=== PATIENT | female | born 1955 | race Caucasian/White ===

== ENCOUNTER 2019-09-30 17:21 | Emergency (ER) | payer BC ==
[~2019-09-30 17:21] MED LIST: SODIUM CHL 0.9% 1000 ML BAG ONE
[2019-09-30] MEDS ORDERED: ETOMIDATE 20 MG/10 ML VIAL IV ONE (17:22)
[2019-09-30] MEDS ORDERED: SUCCINYLCHOLINE 20 MG/ML (10 ML) IV ONE (17:22)
[2019-09-30] MEDS ORDERED: LEVALBUTEROL 1.25 MG/3 ML NEB ONE (17:57)
[2019-09-30] MEDS ORDERED: dexAMETHasone 10 MG/ML VIAL ONE (17:57)
[2019-09-30] MEDS ORDERED: IPRATROPIUM BROM 0.5MG/2.5ML ONE (17:57)
[2019-09-30] MEDS ORDERED: METHYLPREDNISOLONE 125 MG INJ ONE (17:57)
[2019-09-30] MEDS ORDERED: NA CHLORIDE 0.9% 1,000 ML ONE ×2 (17:58→19:27)
[2019-09-30] MEDS ORDERED: FAMOTIDINE 20 MG/2 ML VIAL IV ONE (17:58)
[2019-09-30] MEDS ORDERED: DIPHENHYDRAMINE 50 MG/ML VIAL ONE (17:58)
[2019-09-30] MEDS ORDERED: CEFTRIAXONE/SWI 1gm 1 GM/10 ML SYR ONE (17:58)
[2019-09-30] MEDS ORDERED: AZITHROMYCIN IV 500 MG in NA CHLORIDE 0.9% 250 ML IVPB ONE (18:00)
[2019-09-30 18:22] LABS: Absolute Lymphocytes (CBC) 0.4 K/uL (0.7-4.9); Basophils % 0.2 % (0-1.3); Hematocrit 45.2 % (36.0-45.0); Lymphocytes % 5.3 % (15.3-44.8); MPV 8.6 fL (7.6-11.3); RBC Red Blood Cell Count 4.73 M/uL (3.86-4.86)
[2019-09-30 18:29] LABS: Protime INR 1.04
[2019-09-30 18:54] LABS: ALT/SGPT 36 U/L (12-78); AST/SGOT 36 U/L (15-37); Albumin 3.5 g/dL (3.4-5.0); Alkaline Phosphatase 138 U/L (45-117); BUN Blood Urea Nitrogen 13 mg/dL (7-18); Bicarbonate 19 mmol/L (21-32); Bilirubin Direct 0.5 mg/dL (0-0.2); Glucose Level 193 mg/dL (74-106); NT PRO-BNP 212 pg/mL (<125); Potassium 3.1 mmol/L (3.5-5.1); Protein, Total 7.3 g/dL (6.4-8.2); Sodium Level 141 mmol/L (136-145); Troponin (Emerg Dept Use Only) < 0.02 ng/mL (0.0-0.045)
[2019-09-30 18:59] LABS: Magnesium 1.1 mg/dL (1.8-2.4)
[2019-09-30] MEDS ORDERED: MAGNESIUM SULFATE 1 gm IVPB 1 GM/100 ML BAG IV ONE (19:05)
[2019-09-30] MEDS ORDERED: Magnesium Sulfate 2gm IVPB 0 G/0 ML BAG IV ONE (19:15)
[2019-09-30] MEDS ORDERED: KCL 20 MEQ/100 mL IVPB 0 MEQ/0 ML BAG IV ONE (19:15)
[2019-09-30] MEDS ORDERED: RSI MEDICATION KIT IV ONE (19:28)
[2019-09-30] MEDS ORDERED: LIDOCAINE 1% W/EPI 1:100,000 MDV 50 ML VIAL ONE (20:06)
--- NOTE | 2019-09-30 20:09 | ER ---
Nurse's Notes [facility] Name: Sonal Mendoza Age: 64 yrs Sex: Female : 1955 Arrival Date: 09/30/2019 Time: 17:25 Bed External Waiting [facility] MD: Diagnosis: Stridor;Angioneurotic edema-submental;Respiratory failure, unspecified;Tracheostomy status-cricothyroidotomy;Type 2 diabetes mellitus;Obesity, unspecified;Hypokalemia;Hypomagnesemia Presentation: 09/30 17:27 Transition of care: patient was not received from another setting of care. Onset of tw2 symptoms was September 30, 2019. Risk Assessment: Do you want to hurt yourself or someone else? Patient reports no desire to harm self or others. Initial Sepsis Screen: Does the patient meet any 2 criteria? HR > 90 bpm. No. Patient's initial sepsis screen is negative. Does the patient have a suspected source of infection? Yes: Productive cough/pneumonia. 17:27 Method Of Arrival: EMS: [facility] tw2 17:27 Presenting complaint: EMS states: started at 0400am today. Pt went to urgent care ca1 at noon with Dx of Pharyngitis and was sent home with Augmentin prescription. Took Augmentin med [employer]. Pt c/o increase , wheezing upon auscultation. SBP at 110. Sinus tach. Transition of care: patient was not received from another setting of care. Onset of symptoms was September 30, 2019. Risk Assessment: Do you want to hurt yourself or someone else? Patient reports no desire to harm self or others. 17:27 Acuity: JENNA 3 ca1 17:28 Care prior to arrival: Medication(s) given: Albuterol Neb x 1, Atrovent Neb x 1, ca1 Solu-Medrol 125mg IV initiated. 20 GA, in the left antecubital area. 18:50 Acuity: JENNA 2 ss Historical: - Allergies: 17:40 Sulfa (Sulfonamide Antibiotics); ca1 - Home Meds: 17:40 amlodipine 5 mg tab 1 tab once daily [Active]; diazepam 5 mg Oral tab 1 tab 2 times per ca1 day [Active]; enalapril maleate 10 mg Oral tab 1 tab 2 times per day [Active]; ibuprofen 800 mg Oral tab as needed [Active]; Tresiba 1.8 mg daily [Active]; Trulisity 28 mg daily [Active]; atorvastatin 40 mg oral tab 1 tab once daily [Active]; Invokana 300 mg oral tab 1 tab once daily [Active]; furosemide 20 mg Oral tab 1 tab once daily [Active]; oxbytynin 10mg daily [Active]; pantoprazole oral oral [Active]; - PMHx: 17:40 Hyperlipidemia; Hypertension; Diabetes - NIDDM; ca1 - PSHx: 17:40 ; ca1 - Immunization history:: Adult Immunizations. - Social history:: Smoking status: . - Ebola Screening: : Patient denies travel to an Ebola-affected area in the 21 days before illness onset. Screenin:26 Abuse screen: Denies threats or abuse. Nutritional screening: No deficits noted. tw2 Tuberculosis screening: No symptoms or risk factors identified. Fall Risk None identified. Assessment: 17:35 General: Appears in no apparent distress. comfortable, Behavior is calm, cooperative, ca1 appropriate for age. Pain: Complains of pain in neck Pain currently is 6 out of 10 on a pain scale. Neuro: Level of Consciousness is awake, alert, obeys commands, Oriented to person, place, time, situation, Appropriate for age. Cardiovascular: Heart tones S1 S2 present Capillary refill < 3 seconds Patient's skin is warm and dry. Rhythm is sinus tachycardia. Respiratory: Reports shortness of breath cough that is Airway is patent Respiratory effort is even, unlabored, Respiratory pattern is regular, symmetrical, Breath sounds with wheezes bilaterally. GI: Abdomen is round non-distended, Bowel sounds present X 4 quads. Abd is soft and non tender X 4 quads. : No deficits noted. No signs and/or symptoms were reported regarding the genitourinary system. EENT: Reports nasal congestion. Derm: Skin is intact, is healthy with good turgor, Skin is pink, warm \T\ dry. Musculoskeletal: Circulation, motion, and sensation intact. Capillary refill < 3 seconds, Range of motion: intact in all extremities. 18:26 Reassessment: Patient appears in no apparent distress at this time. Patient and/or ca1 family updated on plan of care and expected duration. Pain level reassessed. Patient is alert, oriented x 3, equal unlabored respirations, skin warm/dry/pink. 18:38 Reassessment: Pt exerted herself to situate self on bed. Had severe . Placed on NRB, ca1 instructed to breathe slower. Notified provider. Pt now breathing better, severe resolved. Equal and unlabored respirations at this time.. Skin pink, warm and dry. Provider at bedside. 19:10 Reassessment: Patient appears in no apparent distress at this time. Patient and/or wh family updated on plan of care and expected duration. Pain level reassessed. Patient is alert, oriented x 3, equal unlabored respirations, skin warm/dry/pink. Lung sound with wheezes, MD Mendoza at bedside plan for CT scan of neck. 19:20 Reassessment: Pt was taken to CT with nurse, Pt started to become anxious and had wh respiratory distress. Pt was taken back to bedside still with O2 mask. MD notified. 19:22 Reassessment: MD at bedside PT in respiratory distress, RT paged plan for intubation. wh 19:29 Reassessment: Pt was prepped for intubation MD Epperson and MD Mendoza at bedside. wh 19:45 Reassessment: Emergency Cricothyrotomy performed by MD Mendoza. wh 20:00 Reassessment: Pt attempting to pull out ET tube, meds given. wh 20:42 Reassessment: Central Line started by MD Epperson, Pt moving extremity, House [facility]ers wh held Pt extremity. 21:10 Reassessment: Report given to Alexandra Martins RN [facility]. wh 21:15 Reassessment: [facility] arrived with report given by MD Mendoza, Pt VSS, Pupils wh reactive to light, with movement of extremity noted. Vital Signs: 17:25 BP 162 / 83; Pulse 110; Resp 20; Pulse Ox 98% on R/A; tw2 17:40 Temp 98.2(O); Weight 98.43 kg (R); Height 5 ft. 3 in. (160.02 cm) (R); ca1 18:26 BP 108 / 77; Pulse 116; Resp 21; Pulse Ox 100% on R/A; ca1 19:30 Pulse 112; Resp 26; Pulse Ox 94% ; wh 20:00 BP 85 / 54; Pulse 104; Resp 22; Pulse Ox 94% ; wh 20:30 BP 85 / 74; Pulse 96; Resp 24; Pulse Ox 98% ; wh 21:00 BP 108 / 65; Pulse 87; Resp 20; Pulse Ox 94% ; 17:40 Body Mass Index 38.44 (98.43 kg, 160.02 cm) ca1 ED Course: 17:25 Patient arrived in ED. tw2 17:25 Bed in low position. Call light in reach. laborer golf course on. Pulse ox on. NIBP on. tw2 17:27 Fang Reyes, RN is Primary Nurse. ca1 17:27 Arm band placed on. tw2 17:32 Owen Epperson MD is Attending Physician. [facility] 17:32 Triage completed. ca1 17:35 Warm blanket given. Head of bed elevated. ca1 17:35 No provider procedures requiring assistance completed. Maintain EMS IV. Dressing ca1 intact. Good blood return noted. Site clean \T\ dry. Gauge \T\ site: G20 LAC. 17:55 Initial lab(s) drawn, by fl, sent to lab. First set of blood cultures drawn by me. lt1 18:03 Inserted saline lock: 22 gauge in right hand, using aseptic technique. lt1 18:18 Second set of blood cultures drawn by me. ca1 18:30 XRAY Chest (1 view) In Process Unspecified. EDMS 19:01 Fuentes Zhang is Primary Nurse. 20:10 One-on-one care X 60 minutes. aa1 20:21 XRAY Chest (1 view) In Process Unspecified. EDMS 20:33 Inserted saline lock: 18 gauge in right antecubital area, using aseptic technique. By [facility] Tech. 21:10 One-on-one care X 60 minutes. aa1 21:23 Patient transferred, IV remains in place. 10/01 05:48 Primary Nurse role handed off by Fuentes Zhang aa1 Administered Medications: 09/30 18:00 Drug: NS 0.9% 1000 ml Route: IV; Rate: 1 bolus; Site: right hand; ca1 21:18 Follow up: Response: No adverse reaction; IV Status: Completed infusion 18:01 Drug: Decadron - Dexamethasone 10 mg Route: IVP; Site: right hand; ca1 21:20 Follow up: Response: No adverse reaction 18:04 Not Given (previously given by EMS): SOLU-Medrol 125 mg IVP once tw2 18:04 Drug: Pepcid 40 mg Route: IVP; Site: right hand; ca1 21:19 Follow up: Response: No adverse reaction wh 18:04 Drug: Xopenex 3.75 mg Route: Inhalation; tw2 18:04 Drug: AtroVENT Aerosol 0.5 mg Route: Inhalation; tw2 18:08 Drug: Benadryl 25 mg Route: IVP; Site: left hand; ca1 21:19 Follow up: Response: No adverse reaction 18:19 Drug: Rocephin 1 grams Route: IV; Rate: per protocol; Site: right hand; ca1 21:19 Follow up: Response: No adverse reaction; IV Status: Completed infusion 18:20 Drug: Zithromax 500 mg Route: IVPB; Infused Over: 1 hrs; Site: right hand; ca1 21:18 Follow up: Response: No adverse reaction; IV Status: Completed infusion 18:25 Drug: Benadryl 25 mg Route: IVP; Site: right hand; ca1 21:19 Follow up: Response: No adverse reaction 19:06 Drug: Magnesium Sulfate 1 grams Route: IVPB; Infused Over: 1 hrs; Site: left wh antecubital; 21:19 Follow up: Response: No adverse reaction; IV Status: Completed infusion 19:28 Drug: Etomidate 20 mg Route: IVP; Site: left antecubital; aa1 19:28 Drug: NS 0.9% 1000 ml Route: IV; Rate: 1000 ml; Site: left antecubital; aa1 20:00 Follow up: IV Status: Completed infusion; IV Intake: 1000ml aa1 19:29 Drug: Ketamine 200 mg Route: IVP; Site: left antecubital; aa1 19:39 Drug: Succinylcholine 50 mg Route: IVP; Site: left antecubital; aa1 20:01 Drug: Ketamine 200 mg Route: IVP; Site: left antecubital; aa1 20:01 Drug: fentaNYL (PF) 100 mcg Route: IVP; Site: left antecubital; aa1 20:05 Drug: Ketamine 100 mg Route: IVP; Site: left antecubital; aa1 20:07 Drug: Succinylcholine 50 mg Route: IVP; Site: left antecubital; aa1 20:10 Drug: NS 0.9% 1000 ml Route: IV; Rate: 1000 ml; Site: left antecubital; aa1 21:00 Follow up: IV Status: Completed infusion; IV Intake: 1000ml aa1 20:27 Drug: Lidocaine-Epinephrine -1%: (1:100,000) 1 application Volume: 20 ml; Route: aa1 Infiltration; 20:30 Drug: Ketamine 200 mg Route: IVP; Site: left antecubital; aa1 20:35 Drug: Ketamine 200 mg Route: IVP; Site: left antecubital; aa1 20:38 Drug: Succinylcholine 100 mg Route: IVP; Site: left antecubital; aa1 20:40 Drug: fentaNYL (PF) 50 mcg/h Route: IV; Rate: calculated rate; Site: left antecubital; aa1 10/01 06:14 Follow up: IV Status: Infusion continued upon transfer aa1 09/30 20:50 Drug: Zosyn 3.375 grams Route: IVPB; Infused Over: 60 mins; Site: right femoral; 21:20 Follow up: Response: No adverse reaction; IV Status: Infusion continued upon transfer 22:23 Drug: fentaNYL (PF) 100 mcg Route: IVP; Site: left antecubital; aa1 Intake: 20:00 IV: 1000ml; Total: 1000ml. aa1 21:00 IV: 1000ml; Total: 2000ml. aa1 Outcome: 20:07 ER care complete, transfer ordered by MD. edge 21:[address] [facility], Transfer form completed. X-rays sent w/ patient. 21:22 Transferred Note: Report given to Alexandra Martins RN and Dr Mendoza gave report to [facility] 21:22 Condition: stable 21:22 Instructed on the need for transfer. 21:23 Patient left the ED. 21:23 Patient left the ED. aa1 Signatures: Dispatcher [employer] EDMS Saba Rod RN RN aa1 Owen Epperson MD MD cha Smirch, Shelby, RN RN ss Wise, Tara, RN RN 2 Fuentes Zhang Fang Reyes RN RN ca1 Tran, Leah [facility] Corrections: (The following items were deleted from the chart) 17:33 17:27 Method Of Arrival: EMS: [facility] ca1 ca1 18:00 17:27 Care prior to arrival: None. tw2 ca1 18:00 17:27 Risk Assessment: Do you want to hurt yourself or someone else? Patient reports no ca1 desire to harm self or others. ca1 18:26 17:35 Cardiovascular: Heart tones S1 S2 present Capillary refill < 3 seconds Patient's ca1 skin is warm and dry. ca1 10/01 06:09 06:07 Succinylcholine 100 mg IVP in left antecubital aa1 aa1 06:18 06:16 Patient left the ED. aa1 aa1
--- NOTE | 2019-09-30 20:10 | EDPHYS ---
Physician Documentation [facility] Name: Sonal Mendoza Age: 64 yrs Sex: Female : 1955 Arrival Date: 09/30/2019 Time: 17:25 Bed External Waiting Private MD: ED Physician Owen Epperson HPI: 09/30 17:45 This 64 yrs old Female presents to ER via EMS with complaints of difficulty minesh swallowing, choking. Historical: - Allergies: 17:40 Sulfa (Sulfonamide Antibiotics); ca1 - Home Meds: 17:40 amlodipine 5 mg tab 1 tab once daily [Active]; diazepam 5 mg Oral tab 1 tab 2 times per ca1 day [Active]; enalapril maleate 10 mg Oral tab 1 tab 2 times per day [Active]; ibuprofen 800 mg Oral tab as needed [Active]; Tresiba 1.8 mg daily [Active]; Trulisity 28 mg daily [Active]; atorvastatin 40 mg oral tab 1 tab once daily [Active]; Invokana 300 mg oral tab 1 tab once daily [Active]; furosemide 20 mg Oral tab 1 tab once daily [Active]; oxbytynin 10mg daily [Active]; pantoprazole oral oral [Active]; - PMHx: 17:40 Hyperlipidemia; Hypertension; Diabetes - NIDDM; ca1 - PSHx: 17:40 ; ca1 - Immunization history:: Adult Immunizations. - Social history:: Smoking status: . - Ebola Screening: : Patient denies travel to an Ebola-affected area in the 21 days before illness onset. ROS: 17:47 Constitutional: Negative for fever, chills, and weight loss, Eyes: Negative for injury, minesh pain, redness, and discharge, Neck: Negative for injury, pain, and swelling, Cardiovascular: Negative for chest pain, palpitations, and edema, Abdomen/GI: Negative for abdominal pain, nausea, vomiting, diarrhea, and constipation, Back: Negative for injury and pain, : Negative for injury, bleeding, discharge, and swelling, MS/Extremity: Negative for injury and deformity, Skin: Negative for injury, rash, and discoloration, Neuro: Negative for headache, weakness, numbness, tingling, and seizure, Psych: Negative for depression, anxiety, suicide ideation, homicidal ideation, and hallucinations, Allergy/Immunology: Negative for hives, rash, and allergies, Endocrine: Negative for neck swelling, polydipsia, polyuria, polyphagia, and marked weight changes, Hematologic/Lymphatic: Negative for swollen nodes, abnormal bleeding, and unusual bruising. 17:47 Respiratory: Positive for cough, shortness of breath, on exertion. Exam: 17:47 Constitutional: This is a well developed, well nourished patient who is awake, alert, minesh and in no acute distress. Head/Face: Normocephalic, atraumatic. Eyes: Pupils equal round and reactive to light, extra-ocular motions intact. Lids and lashes normal. Conjunctiva and sclera are non-icteric and not injected. Cornea within normal limits. Periorbital areas with no swelling, redness, or edema. Neck: Trachea midline, no thyromegaly or masses palpated, and no cervical lymphadenopathy. Supple, full range of motion without nuchal rigidity, or vertebral point tenderness. No Meningismus. Chest/axilla: Normal chest wall appearance and motion. Nontender with no deformity. No lesions are appreciated. Abdomen/GI: Soft, non-tender, with normal bowel sounds. No distension or tympany. No guarding or rebound. No evidence of tenderness throughout. Back: No spinal tenderness. No costovertebral tenderness. Full range of motion. Skin: Warm, dry with normal turgor. Normal color with no rashes, no lesions, and no evidence of cellulitis. MS/ Extremity: Pulses equal, no cyanosis. Neurovascular intact. Full, normal range of motion. Neuro: Awake and alert, GCS 15, oriented to person, place, time, and situation. Cranial nerves II-XII grossly intact. Motor strength 5/5 in all extremities. Sensory grossly intact. Cerebellar exam normal. Normal gait. Psych: Awake, alert, with orientation to person, place and time. Behavior, mood, and affect are within normal limits. 17:47 ENT: Posterior pharynx: no acute changes, Airway: normal, no evidence of obstruction, Tonsils: with erythema, Uvula: normal, midline, non-edematous, no erythema, swelling, is not appreciated, erythema, is not appreciated. 17:47 ENT: Posterior pharynx: exudate, is not appreciated, peritonsillar mass, is not minesh appreciated, pooling of secretions, is not appreciated. Vital Signs: 17:25 BP 162 / 83; Pulse 110; Resp 20; Pulse Ox 98% on R/A; tw2 17:40 Temp 98.2(O); Weight 98.43 kg (R); Height 5 ft. 3 in. (160.02 cm) (R); ca1 18:26 BP 108 / 77; Pulse 116; Resp 21; Pulse Ox 100% on R/A; ca1 19:30 Pulse 112; Resp 26; Pulse Ox 94% ; wh 20:00 BP 85 / 54; Pulse 104; Resp 22; Pulse Ox 94% ; wh 20:30 BP 85 / 74; Pulse 96; Resp 24; Pulse Ox 98% ; wh 21:00 BP 108 / 65; Pulse 87; Resp 20; Pulse Ox 94% ; wh 17:40 Body Mass Index 38.44 (98.43 kg, 160.02 cm) ca1 Procedures: 21:08 Central Line: the site was prepped with Betadine, in sterile fashion, a triple lumen minesh catheter was inserted, in the right in 2 attempts. placement was verified, by blood return, the site was dressed with using sterile technique, the patient tolerated the procedure, well. 22:18 Intubation: Ventilated with 100% NRB prior to procedure. Intubated via cricothyrotomy ps1 was successful on first attempt. Tube secured Placement verified by CXR, CO2 detector with (+) color change, Patient was attempted to be intubated prior via GlideScope. Multiple failed intubations by myself and anesthesia using all methods and contingencies to secure airway. Procedure was performed by prepping neck with Betadine. 15 blade used in vertical fashion and extended to cricoid cartilage. Spreaders used to visualized surgical area. Longitudinal incision made and jacobs of air confirmed placement into trachea. Bleeding controlled with pressure. 6-0 ETT placed cuff inflated and patient was able to be ventilated, confirmed with bedside quantitative capnography \T\ \R\45. . MDM: 17:32 Patient medically screened. [facility] 17:50 Data reviewed: vital signs, nurses notes, lab test result(s), EKG, radiologic studies, [facility] CT scan, plain films. 22:18 ED course: Assumed care from Dr. Epperson at shift change. Evaluated patient and had ps1 significant swelling in submandibular area. No trismus or difficulty in phonation. Family at bedside. Was given 125mg solumedrol and 10mg decadron IV. Plan for CT soft tissue neck for further evaluation. Patient upon going to CT became anxious and then could not breathe. She went full respiratory distress and called back to room. Myself and Dr. Epperson emergently treating patients condition. Able to bag. Ketamine was given to protect airway given likelihood of anatomical difficulty. Glidescope used and cords could not be passed with ET tube. Marked swelling of area and pooling of secretions. Attempts to suction and intubate failed secondary to swelling including bougie. Anesthesia paged and performed failed intubation. scallop binder surgery paged. Emergent cricothyrotomy was performed by myself given poor visualization attempts and coordination with other ED physician Dr. Epperson and Anesthesia Dr. Lee as we did not want to compromise the airway and ability to bag. Successful placement of 6-0 ETT in trachea. Patient moving all extremities and no FND noted. Bleeding was minimal and controlled with pressure. Dr. Vanessa presented to ED and confirmed placement with emergent bronchoscopy and placed 4-0 uncuffed Shiley over bougie via ETT. Patient was sedated with ketamine and fentanyl as patient was moving during procedure. Dr. Epperson placed right femoral CVC. Transferred critically stable on trach via helicopter to [facility]. Patient was moving all extremities and had normal sized pupils. No FND appreciated from event. . 09/30 17:44 Order name: Basic Metabolic Panel; Complete Time: 19: minesh 09/30 17:44 Order name: CBC with Diff; Complete Time: 21:09 minesh 09/30 17:44 Order name: LFT's; Complete Time: 19: minesh 09/30 17:44 Order name: Magnesium; Complete Time: 19: minesh 09/30 17:44 Order name: NT PRO-BNP; Complete Time: 19: minesh 09/30 17:44 Order name: PT-INR; Complete Time: 18:52 minesh 09/30 17:44 Order name: Troponin (emerg Dept Use Only); Complete Time: 19: minesh 09/30 17:44 Order name: XRAY Chest (1 view); Complete Time: 21:09 minesh 09/30 17:47 Order name: Blood Culture Adult (2) minesh 09/30 18:36 Order name: CBC Smear Scan; Complete Time: 21:09 EDWA 09/30 19:58 Order name: XRAY Chest (1 view); Complete Time: 21:09 dm5 09/30 20:26 Order name: Glucose, Ancillary Testing; Complete Time: 21:09 EDMS 09/30 20:26 Order name: Glucose, Ancillary Testing EDWA 09/30 17:44 Order name: EKG; Complete Time: 17:47 minesh 09/30 17:44 Order name: Cardiac monitoring; Complete Time: 17:48 [facility] 09/30 17:44 Order name: EKG - Nurse/Tech; Complete Time: 17:48 [facility] 09/30 17:44 Order name: IV Saline Lock; Complete Time: 18:25 minesh 09/30 17:44 Order name: Labs collected and sent; Complete Time: 18:25 [facility] 09/30 17:44 Order name: O2 Per Protocol; Complete Time: 17:48 [facility] 09/30 17:44 Order name: O2 Sat Monitoring; Complete Time: 17:48 [facility] 09/30 19:10 Order name: IV Saline Lock - Large Bore; Complete Time: 20:52 [facility] 09/30 19:11 Order name: NPO; Complete Time: 21:18 [facility] 09/30 20:11 Order name: Blood Glucose Level; Complete Time: 20:52 minesh Administered Medications: 18:00 Drug: NS 0.9% 1000 ml Route: IV; Rate: 1 bolus; Site: right hand; ca1 21:18 Follow up: Response: No adverse reaction; IV Status: Completed infusion wh 18:01 Drug: Decadron - Dexamethasone 10 mg Route: IVP; Site: right hand; ca1 21:20 Follow up: Response: No adverse reaction wh 18:04 Not Given (previously given by EMS): SOLU-Medrol 125 mg IVP once tw2 18:04 Drug: Pepcid 40 mg Route: IVP; Site: right hand; ca1 21:19 Follow up: Response: No adverse reaction wh 18:04 Drug: Xopenex 3.75 mg Route: Inhalation; tw2 18:04 Drug: AtroVENT Aerosol 0.5 mg Route: Inhalation; tw2 18:08 Drug: Benadryl 25 mg Route: IVP; Site: left hand; ca1 21:19 Follow up: Response: No adverse reaction 18:19 Drug: Rocephin 1 grams Route: IV; Rate: per protocol; Site: right hand; ca1 21:19 Follow up: Response: No adverse reaction; IV Status: Completed infusion 18:20 Drug: Zithromax 500 mg Route: IVPB; Infused Over: 1 hrs; Site: right hand; ca1 21:18 Follow up: Response: No adverse reaction; IV Status: Completed infusion 18:25 Drug: Benadryl 25 mg Route: IVP; Site: right hand; ca1 21:19 Follow up: Response: No adverse reaction 19:06 Drug: Magnesium Sulfate 1 grams Route: IVPB; Infused Over: 1 hrs; Site: left wh antecubital; 21:19 Follow up: Response: No adverse reaction; IV Status: Completed infusion 19:28 Drug: Etomidate 20 mg Route: IVP; Site: left antecubital; aa1 19:28 Drug: NS 0.9% 1000 ml Route: IV; Rate: 1000 ml; Site: left antecubital; aa1 20:00 Follow up: IV Status: Completed infusion; IV Intake: 1000ml aa1 19:29 Drug: Ketamine 200 mg Route: IVP; Site: left antecubital; aa1 19:39 Drug: Succinylcholine 50 mg Route: IVP; Site: left antecubital; aa1 20:01 Drug: Ketamine 200 mg Route: IVP; Site: left antecubital; aa1 20:01 Drug: fentaNYL (PF) 100 mcg Route: IVP; Site: left antecubital; aa1 20:05 Drug: Ketamine 100 mg Route: IVP; Site: left antecubital; aa1 20:07 Drug: Succinylcholine 50 mg Route: IVP; Site: left antecubital; aa1 20:10 Drug: NS 0.9% 1000 ml Route: IV; Rate: 1000 ml; Site: left antecubital; aa1 21:00 Follow up: IV Status: Completed infusion; IV Intake: 1000ml aa1 20:27 Drug: Lidocaine-Epinephrine -1%: (1:100,000) 1 application Volume: 20 ml; Route: aa1 Infiltration; 20:30 Drug: Ketamine 200 mg Route: IVP; Site: left antecubital; aa1 20:35 Drug: Ketamine 200 mg Route: IVP; Site: left antecubital; aa1 20:38 Drug: Succinylcholine 100 mg Route: IVP; Site: left antecubital; aa1 20:40 Drug: fentaNYL (PF) 50 mcg/h Route: IV; Rate: calculated rate; Site: left antecubital; [facility] 10/01 06:14 Follow up: IV Status: Infusion continued upon transfer [facility] 09/30 20:50 Drug: Zosyn 3.375 grams Route: IVPB; Infused Over: 60 mins; Site: right femoral; 21:20 Follow up: Response: No adverse reaction; IV Status: Infusion continued upon transfer 22:23 Drug: fentaNYL (PF) 100 mcg Route: IVP; Site: left antecubital; [facility] Disposition: 22:18 Critical Care:. ps1 Disposition: 09/30/19 20:07 Transfer ordered to [facility]. Diagnosis are Stridor, Angioneurotic edema - submental, Respiratory failure, unspecified, Tracheostomy status - cricothyroidotomy, Type 2 diabetes mellitus, Obesity, unspecified, Hypokalemia, Hypomagnesemia. - Reason for transfer: Higher level of care. - Accepting physician is [place] [facility], life flight. - Condition is Critical. - Problem is new. - Symptoms have improved. Critical care time excluding procedures: 22:18 Critical care time: Bedside Care: 45 minutes, Consultation: 10 minutes, Family ps1 Intervention: 15 minutes. Total time: 70 minutes Signatures: Dispatcher [employer] EDSaba Cole RN RN aa1 Owen Epperson MD MD cha Smirch, Shelby, RN RN ss Jeannie Marcum RN RN tw2 Fuentes Zhang Phillip, MD MD ps1 Fang Reyes RN RN ca1 Corrections: (The following items were deleted from the chart) 20:25 20:07 09/30/2019 20:07 Transfer ordered to [facility]. minesh Diagnosis is Stridor; Angioneurotic edema - submental; Respiratory failure, unspecified; Tracheostomy status; Type 2 diabetes mellitus; Obesity, unspecified. Reason for transfer: Higher level of care. Accepting physician is [place] [facility], life flight. Condition is Critical. Problem is new. Symptoms have improved. minesh 21:11 20:25 09/30/2019 20:07 Transfer ordered to [facility]. minesh Diagnosis is Stridor; Angioneurotic edema - submental; Respiratory failure, unspecified; Tracheostomy status; Type 2 diabetes mellitus; Obesity, unspecified; Hypokalemia; Hypomagnesemia. Reason for transfer: Higher level of care. Accepting physician is [place] er, life flight. Condition is Critical. Problem is new. Symptoms have improved. minesh 21:23 21:11 09/30/2019 20:07 Transfer ordered to [facility]. Diagnosis is Stridor; Angioneurotic edema - submental; Respiratory failure, unspecified; Tracheostomy status - cricothyroidotomy; Type 2 diabetes mellitus; Obesity, unspecified; Hypokalemia; Hypomagnesemia. Reason for transfer: Higher level of care. Accepting physician is [place] [facility], life flight. Condition is Critical. Problem is new. Symptoms have improved. minesh 10/01 04:07 09/30 22:18 ED course: Assumed care from Dr. Epperson at shift change. Evaluated ps1 patient and had significant swelling in submandibular area. No trismus or difficulty in phonation. Family at bedside. Was given 125mg solumedrol and 10mg decadron IV. Plan for CT soft tissue neck for further evaluation. Patient upon going to CT became anxious and then could not breathe. She went full respiratory distress and called back to room. Myself and Dr. Epperson emergently treating patients condition. Able to bag. Ketamine was given to protect airway given likelihood of anatomical difficulty. Glidescope used and cords could not be passed with ET tube. Marked swelling of area and pooling of secretions. Attempts to suction and intubate failed secondary to swelling including bougie. Anesthesia paged and performed failed intubation. scallop binder surgery paged. Emergent cricothyrotomy was performed by myself given poor O2 sats and difficulty bagging after multiple attempts and coordination with other ED physician Dr. Epperson and Anesthesia Dr. Lee. Successful placement of 6-0 ETT in trachea. Patient moving all extremities and no FND noted. Bleeding was minimal and controlled with pressure. Dr. Vanessa presented to ED and confirmed placement with emergent bronchoscopy and placed 4-0 uncuffed Shiley over bougie via ETT. Patient was sedated with ketamine and fentanyl. Dr. Epperson placed right femoral CVC. Transferred critically stable on trach via helicopter to [facility]. . ps1 10/01 06:16 09/30 21:23 09/30/2019 20:07 Transfer ordered to [facility]. aa1 Diagnosis is Stridor; Angioneurotic edema - submental; Respiratory failure, unspecified; Tracheostomy status - cricothyroidotomy; Type 2 diabetes mellitus; Obesity, unspecified; Hypokalemia; Hypomagnesemia. Reason for transfer: Higher level of care. Accepting physician is [place] jamal, life flight. Condition is Critical. Problem is new. Symptoms have improved. wh
[2019-09-30] MEDS ORDERED: FENTANYL CITR 100 MCG/2 ML ONE ×3 (20:24→20:35)
[2019-09-30] MEDS ORDERED: NOREPINEPHRINE 4mg/D5W 250mL 0 MG/0 ML BAG IV ONE (20:27)
[2019-09-30 20:31] LABS: Anisocytosis 1+; Blood Morphology Comment NOTED (NOT SEEN); Platelet Estimate ADEQ; Urine White Blood Cell Casts OK
[2019-09-30] MEDS ORDERED: KETAMINE HCL 500 MG/5 ML VIAL ONE (20:31)
[2019-09-30] MEDS ORDERED: NA CHLORIDE 0.9% 50 ML IV ONE (20:35)
--- NOTE | 2019-09-30 20:35 | RAD REPORT ---
EXAM DESCRIPTION: RAD - Chest Single View - 09/30/2019 6:25 pm CLINICAL HISTORY: Cough COMPARISON: April 2019 TECHNIQUE: AP portable chest image was obtained 1820 hours . FINDINGS: Lungs are clear. Heart and vasculature are normal. No measurable pleural effusion and no p neumothorax. No acute bony abnormality seen. No acute aortic findings suspected. No significant inter pascale change. IMPRESSION: No acute cardiopulmonary process.
--- NOTE | 2019-09-30 20:41 | RAD REPORT ---
EXAM DESCRIPTION: RAD - Chest Single View - 09/30/2019 8:21 pm CLINICAL HISTORY: Intubation COMPARISON: September 30 TECHNIQUE: AP portable chest image was obtained 2018 hours . FINDINGS: Lung volumes are low. Endotracheal tube is in place T4 level just superior to the aortic a rch. Patient is rotated which distorts mediastinum. Surgical instruments overlie the neck and upper c hest Dense airspace opacification has developed in the mid and lower left lung field. There is airspace op acification in the right upper lobe. Heart size is accentuated by shallow inspiration and portable te chnique. No measurable pleural effusion and no pneumothorax. No acute bony abnormality seen. No acute aortic findings suspected. IMPRESSION: Endotracheal tube in good position T4 level just above the aortic arch. New dense airspace opacification in the lower left lung field and upper right lung field. This could be edema, infiltrate or aspiration.
[2019-09-30] MEDS ORDERED: PIPER/TAZO/NS 3.375gm 3.375 GM/100 ML BAG ONE (20:56)
--- NOTE | 2019-09-30 21:26 | ENDO RPT ---
[address], [address] BRONCHOSCOPY PROCEDURE REPORT EXAM DATE: 09/30/2019 PATIENT NAME: Sonal Mendoza MR #: [id number] BIRTHDATE: 1955 ATTENDING: Anuel Vanessa DR STATUS: inpatient - 7 MANAGER TALENT: Colton [employer] INDICATIONS: The patient is a 64 yr old Female here for a bronchoscopy due to upper airway obstruction, hemoptysis, and Angioedema with airway obstruction PROCEDURE PERFORMED: Bronchoscopy MEDICATIONS: Per Anesthesia. TOPICAL ANESTHETIC: none CONSENT: The patient understands the risks and benefits of the procedure and understands that these risks include, but are not limited to: sedation, allergic reaction, infection, perforation and/or bleeding. Alternative means of evaluation and treatment include, among others: physical exam, x-rays, and/or surgical intervention. The patient elects to proceed with this endoscopic procedure. DESCRIPTION OF PROCEDURE: During intra-op preparation period all mechanical medical equipment was checked for proper function. Hand hygiene and appropriate measures for infection prevention was taken. After the risks, benefits and alternatives of the procedure were thoroughly explained, Informed consent not obtained due to emergency proceudre, The patient was anesthetized with topical anesthesia and the Pentax EB-[id number] ([id number]) bronchoscope was introduced through the mouth, and later through the tracheostomy. When adequate anesthesia was achieved, the bronchoscope was passed through the larynx, into the trachea. The tracheo-bronchial tree was only examined to the libertad. FINDINGS: An airway deviation was found in the trachea. anteriorly located edematous erythematous with fresh clot Verified Position of Tracheostomy The instrument was then slowly withdrawn and removed. --> Patient was brought in with airway obstruction, significant angioedema, attempts to intubate by ER staff and anesthesiologist were unsuccessful. ER physician performed cricoid / tracheal incision and placed #6 ET tube in trachea. ET tube was replaced with 4 uncuffed shiley tracheostomy tube using seldinger technique and gum elastic bougie by myself. Bronchoscope was used to verify position of the tracheostomy from mouth. ADVERSE EVENTS: There were no complications. IMPRESSIONS: An airway deviation was found in the trachea RECOMMENDATIONS: 1. repeat x-ray 2. respiratory therapy 3. Transferred to tertiary referral center with ENT specialty for further management. Anuel Vanessa DR eSigned: Anuel Vanessa DR 09/30/2019 9:26 PM CC: CPT CODES: ICD9 CODES: PATIENT NAME: Sonal Mendoza MR#: [id number]
[2019-09-30 21:33] VITALS: TEMP 98.2
[2019-09-30 21:35] VITALS: BP 108/77
--- NOTE | 2019-10-01 02:04 | CON ---
Date of Consultation: 09/30/2019 Reason For Consultation: Airway compromise, in need for surgical airway. History Of Present Illness: The patient is a 64-year-old female who came to the hospital with airway angioedema and choking and difficulty breathing. She had a significant anxiety and ultimately had r espiratory decompensation. It was decided the patient would require emergent intubation and intubati on was attempted by the ER staff unsuccessfully. They called Dr. Lee, anesthesiologist who ultim ately tried to intubate the patient and ultimately unsuccessful. Dr. Tucker Mendoza then opted to place a tracheostomy surgical airway at that same time. Please see Dr. Mendoza's note for full details reg arding this. At this point while Dr. Mendoza was attempting to make the incision, I was notified to [facility] and see the patient as such came emergently. I arrived at the bedside and noted that the tracheo stomy had been performed prior to my arrival with a 6 ET tube in the trachea. The patient had a satu ration sitting in the 80s. I examined the tube and the airway. There was some bleeding from what ap peared to be the thyroid. This was controlled with simple digital pressure. I pulled the ET tube ba ck with the cuff inflated and the patient's saturations improved to 90%. After I requested a bronch, a flexible bronchoscope brought to the bedside. I also requested a gum elastic bougie and multiple Shiley tracheostomy appliances to be brought to the bedside. There was only an 8 cuffed to the remai nder of the tracheostomy tubes were 4 and a 6 uncuffed Shiley. I opted to attempt a 6 initially uncu ffed and ultimately decided on a 4 uncuffed as the incision in the trachea appeared quite small and t he patient had significant airway angioedema and a quite obese neck. At this point, I lubricated pre pared all the equipment and exchanged using the gum elastic bougie the ET tube for the 4 Shiley and p laced into the trachea. It was placed in the trachea without significant difficulty. I then used th e bronchoscope to verify the position of the tracheostomy tube by passing it through the mouth and en suring that the tube was in the trachea passing the bronchoscope down to the libertad and into the righ t and left mainstem bronchus. I then pulled the tube back. There was no obvious injury to the esoph kavitha on bronchoscopy and the Shiley was then secured to the neck using straps. I was unable to obtai n any information as the patient was sedated obviously prior to my arrival. The rest of the informat ion is obtained from the chart. Past Medical History: Significant for hyperlipidemia, hypertension, diabetes. Past Surgical History: . Allergies: SULFA. Home Medications: Include amlodipine, diazepam, enalapril, ibuprofen, Tresiba, atorvastatin, Invokan a, Lasix, pantoprazole, oxybutynin. Social History: Unable to obtain. The remainder of the information was unable to obtain. The patient unable to be compliant with any o f the other questioning. Physical Examination: Please see HPI. The patient had significant angioedema and airway compromise. I additionally used t he glide scope to see if I could see a window into the vocal cords, but this was unable to be obtaine d due to the significant airway edema. There was some trauma to the pharynx as well with blood clot evident in the upper airway and significant edematous changes and the airway appeared to be in quite an anterior position. Data: Laboratory exam revealed a white blood count 7.6, hemoglobin was 15.1, hematocrit of 45.2, giulia telet count was 224, neutrophils were 90%. PT 12.2, INR 1.04. Sodium 141, potassium 3.1, chloride 1 11, carbon dioxide 19, BUN 13, creatinine 1.1, glucose is 193, calcium 8.8, magnesium was 1.1, total bilirubin 1.0. Chest x-ray was performed to verify position of the initial 6 ET tube, which was offi cially read as endotracheal tube in good position, T4 just above the aortic arch. New dense airspace opacification of the left lower lung field and upper right lung field. This could be edema, infiltr ate, or aspiration. Assessment And Plan: This is a 64-year-old female with airway compromise with a tracheostomy in plac e. 1.I helped exchange the ET tube for a proper Shiley tracheostomy and achieved hemostasis in the surr ounding soft tissues. The patient will be transferred to [facility], I believe as the flight n [place] are arriving at this time. Thank you for this interesting consult. MANSOOR/GALEN Voice ID: [id number] Report ID: [id number]
[2019-10-01 06:31] VITALS: O2SAT 94
--- NOTE | 2019-10-01 12:48 | EKG ---
Test Date: 2019-09-30 Test Time: 17:45:04 Pellet Post Inspector: RONY MEASUREMENT RESULTS: Intervals: Rate: 95 NV: 124 QRSD: 100 QT: 378 QTc: 475 [place]: P: 53 NV: 124 QRS: -40 T: 56 INTERPRETIVE STATEMENTS: Normal sinus rhythm Left axis deviation Pulmonary disease pattern Incomplete right bundle branch block Nonspecific T wave abnormality Prolonged QT Abnormal ECG No previous ECG available for comparison Electronically Signed On 10-01-19 12:47:36 FLUE BLOWER by Justin Cheng
--- NOTE | 2019-10-03 16:45 | EKG ---
Test Date: 2018-09-30 Test Time: 19:30:31 Senior Software Qa Engineer: MEASUREMENT RESULTS: Intervals: Rate: 124 GA: 134 QRSD: 110 QT: 314 QTc: 451 [place]: P: 40 GA: 134 QRS: -28 T: 56 INTERPRETIVE STATEMENTS: Sinus tachycardia Possible Left atrial enlargement Nonspecific ST and T wave abnormality Abnormal ECG Cardioserver Error - Incorrect date on EKG This EKG was performed on 09-30-2019 No previous ECG available for comparison Electronically Signed On 10-03-19 16:41:45 ZONING ADMINISTRATOR by Justin Cheng
== END 2019-10-01 06:16 | disposition short-term general hospital (02) ==
LOC: ER 17:21
PROC: [UNRECOGNIZED PROCEDURE] (principal; 2019-10-01)
PROC: 06HM33Z Insertion of Infusion Device into Right Femoral Vein, Percutaneous Approach (ICD-10-PCS; 2019-10-01)
DX: J96.90 Respiratory failure, unspecified, unspecified whether with hypoxia or hypercapnia (principal); T78.3XXA Angioneurotic edema, initial encounter; E87.6 Hypokalemia; E83.42 Hypomagnesemia; E11.9 Type 2 diabetes mellitus without complications; Z93.0 Tracheostomy status
CPT/HCPCS: 31605; 31500 ×2; 93005 ×2; 87040 ×2; 85025; 80048; 36415; 83735; 85610; 82947; 80076; 84484; 83880; 71045 ×2; 99285; 36556; J0330; J1200; J0456; J3010 ×3; J3475; J2543; J1100; J0696; J7030 ×4; J2930